=== PATIENT | male | born 1955 | race Caucasian/White ===

== ENCOUNTER 2024-03-19 07:04 | Day surgery (SDC) | payer MEDICARE, BC ==
[~2024-03-19 07:04] MED LIST: Sodium Chloride 0.9% 10 ML Syringe FLUSH PRN; Sodium Chloride 0.9% 2.5 ML Syringe FLUSH PRN; Sodium Chloride 0.9% 20 ML SDV IV PRN
[2024-03-19] MEDS: Lactated Ringers 1,000 ML IV SCH (08:00)
[2024-03-19] MEDS ORDERED: Lidocaine 2% 5 ML SDV ONE (08:34)
[2024-03-19] MEDS ORDERED: propofoL 500 MG/50 ML 50 ML ONE (08:34)
== END 2024-03-19 09:40 | disposition home or self-care (01) ==
LOC: MW.SDS 07:04
PROVIDERS: ATTEND Surgery
DX: Z12.11 Encounter for screening for malignant neoplasm of colon (principal); D12.3 Benign neoplasm of transverse colon; K62.1 Rectal polyp; K64.3 Fourth degree hemorrhoids; E66.9 Obesity, unspecified; Z79.899 Other long term (current) drug therapy; Z68.32 Body mass index [BMI] 32.0-32.9, adult; Z86.0100 Personal history of colon polyps, unspecified; Z87.891 Personal history of nicotine dependence
CPT/HCPCS: 45380; J2704; J7120; 88305; J3490